=== PATIENT | male | born 1970 | race Two or more races ===

== ENCOUNTER 2023-10-02 18:52 | Emergency (ER) | payer OTHER ==
[~2023-10-02] VITALS: Ht 167.6 cm; Wt 134.7 kg
[2023-10-02] MEDS ORDERED: PEPCID AC20 MG (19:05)
[2023-10-02] MEDS ORDERED: OZEMPIC0.25 MG/02 SQ (19:05)
== END 2023-10-02 21:44 | disposition home or self-care (01) ==
LOC: ER 18:52
DX: J02.8 Acute pharyngitis due to other specified organisms (principal); Z20.822 Contact with and (suspected) exposure to COVID-19

== ENCOUNTER → 2024-11-04 08:58 | Outpatient (CLI) | payer OTHER ==
[~2024-11-04 08:58] MED LIST: OZEMPIC0.25 MG/02 SQ; PEPCID AC20 MG
== END | disposition home or self-care (01) ==
LOC: LAB 08:58
DX: E11.9 Type 2 diabetes mellitus without complications (principal)